=== PATIENT | male | born 1950 | race Caucasian/White ===

== ENCOUNTER 2017-12-22 12:24 | Observation (INO) | payer OTHER, SELFPAY ==
[~2017-12-22] VITALS: Ht 182.9 cm; Wt 87.2 kg
[~2017-12-22 12:24] MED LIST: ALBU90OI6 INH; ALBU90OI61 INH; AMLO10 PO; AMLOD; AMOCLA875 PO; BENAML10/5 PO; BENAZ; BUPR150ER PO; BUPR150T2 PO; BUSP5 PO; CALCAVITDA PO; CALCIUM PO; CARB150; CETI5 PO; CHLO25 PO; CHOL10002 PO; CIPDEXSU BOTHEARS; CLON.5 PO; CYAN500 PO; CYCL10 PO; DOCU100 PO; DULO30 PO; FERR325 PO; FLUO10 PO; FLUSAL2505 IH; FLUSAL2505 INH; FURO20; FURO20 PO; Flexeril 10 mg10 MG PO; GAVILAX17 GM PO; HYDCHL12.5 PO; HYDCHL25 PO; Iron Supplemen325 MG PO; LOTREL PO; Lamisil250 MG; MAGNESIUM PO; MELO7.5 PO; METO50 PO; MILK THISTLE140 MG PO; MULVIT PO; MULVITMIND PO; Micro-K10 MEQ; Milk Thistle500 MG PO; NAPR500ERA PO; NICO21TP TD; OMEP20ER PO; OMEP40CA12 PO; OXYACE5T PO; PHENY50CH PO; POTCHL10ER PO; PRED10 PO; Prilosec Otc20 MG PO; Prozac20 MG PO; Prozac40 MG; SODCHL1 PO; TIOT18 PO; TRAZ100 PO; TRAZ50 PO; VITAMIN B 12 PO; [UNRECOGNIZED DRUG - OTHER] PO
[2017-12-22] MEDS ORDERED: FLUT1DIS5 INH (12:39)
[2017-12-22] MEDS ORDERED: [UNRECOGNIZED DRUG - OTHER] PO (12:40)
[2017-12-22] MEDS ORDERED: PILO5 PO (12:40)
[2017-12-22 12:47] LABS: BASOPHILS ABSOLUTE AUTO 0.06 K/mm3 (0.00-0.23); BASOPHILS PERCENT AUTO 1 % (0-2); EOSINOPHILS ABSOLUTE AUTO 0.22 K/mm3 (0.00-0.68); EOSINOPHILS PERCENT AUTO 4 % (0-6); Hematocrit 37.7 % (37.0-53.0); Hemoglobin 13.1 g/dL (13.5-17.5); IMMATURE GRAN ABSOLUTE AUTO 0.02 K/mm3 (0.00-0.10); IMMATURE GRAN PERCENT AUTO 0 % (0-1); LYMPHOCYTES ABSOLUTE AUTO 0.78 K/mm3 (0.84-5.20); LYMPHOCYTES PERCENT AUTO 15 % (21-46); MONOCYTES ABSOLUTE AUTO 0.79 K/mm3 (0.16-1.47); MONOCYTES PERCENT AUTO 15 % (4-13); Mean Corpuscular HGB Conc 34.7 g/dL (31.5-36.5); Mean Corpuscular Volume 92 fL (80-100); Mean Platelet Volume 9.1 fL (9.1-12.4); NEUTROPHILS PERCENT AUTO 65 % (41-73); Platelet Count 202 K/mm3 (150-400); RDW Coefficient Variation 13.4 % (11.7-14.2); RDW Standard Deviation 45.8 fL (35.1-46.3); Red Blood Cell Count 4.09 M/mm3 (4.30-5.90); White Blood Cell Count 5.37 K/mm3 (4.00-11.30)
[2017-12-22 13:02] LABS: Source, Urine Clean Catch
[2017-12-22 13:09] LABS: Troponin I <0.015 ng/mL (0.000-0.040)
[2017-12-22 13:16] LABS: Bilirubin, Urine Neg (Neg); Blood, Urine Neg (Neg); Glucose Qualitative, Urine Neg (Neg); Ketones, Urine Neg (Neg); Leukocyte Esterase, Urine Neg (Neg); Nitrite, Urine Neg (Neg); Protein, Urine Neg (Neg); Specific Gravity, Urine 1.005 (1.003-1.022); Urobilinogen, Urine NORM (Normal)
[2017-12-22 13:19] LABS: Alanine Aminotransfer (ALT/SGP 70 U/L (12-78); Albumin, Blood 4.1 g/dL (3.4-5.0); Albumin/Globulin Ratio 1.1 (0.8-1.8); Alk Phos 76 U/L (50-136); Anion Gap 11 mmol/L (6-16); Aspartate Aminotrans (AST/SGOT 77 U/L (12-37); Bilirubin, Total 0.5 mg/dL (0.1-1.0); Blood Urea Nitrogen 4 mg/dL (8-24); Bun/Creatinine Ratio 6.8 (12.0-20.0); CO2, Blood 25 mmol/L (21-32); Calcium, Blood 9.4 mg/dL (8.5-10.1); Chloride, Blood 83 mmol/L (98-108); Creatinine, Blood 0.59 mg/dL (0.60-1.20); Globulin, Blood 3.9 g/dL (2.2-4.0); Glomerular Filtration Rate >60 (60-); Glucose, Blood 102 mg/dL (70-99); Potassium, Blood 4.1 mmol/L (3.5-5.5); Sodium, Blood 119 mmol/L (136-145)
[2017-12-22 13:27] LABS: Appearance, Urine Clear (Clear); Color, Urine Pale Yellow (P-Yellow)
[2017-12-22 13:39] LABS: Ethanol (Alcohol), Blood, Med 43 mg/dL; Magnesium, Blood 1.7 mg/dL (1.6-2.4)
[2017-12-23 09:06] LABS: Anion Gap 8 mmol/L (6-16); Blood Urea Nitrogen 8 mg/dL (8-24); CO2, Blood 29 mmol/L (21-32); Calcium, Blood 8.5 mg/dL (8.5-10.1); Chloride, Blood 90 mmol/L (98-108); Creatinine, Blood 0.67 mg/dL (0.60-1.20); Glomerular Filtration Rate >60 (60-); Glucose, Blood 93 mg/dL (70-99); Potassium, Blood 3.7 mmol/L (3.5-5.5); Sodium, Blood 127 mmol/L (136-145)
[2017-12-23] MEDS ORDERED: Amlodipine-Ben1 EACH PO (14:09)
[2017-12-23] MEDS ORDERED: AZIT500 PO (14:10)
[2017-12-23] MEDS ORDERED: ONE DAILY ESS400 MCG PO (14:12)
[2017-12-23] MEDS ORDERED: TIOT18 INH (14:14)
[2017-12-23] MEDS ORDERED: PRED20 PO (14:14)
[2018-05-21] MEDS ORDERED: BUSP5 PO (01:00)
[2018-05-22] MEDS ORDERED: AMLO5 PO (13:23)
[2018-05-22] MEDS ORDERED: BENA20 PO (13:23)
[2018-10-06] MEDS ORDERED: SODCHL1 PO (17:48)
[2018-10-06] MEDS ORDERED: COMBIVENT RESPIM4 GM INH (17:49)
[2018-10-06] MEDS ORDERED: CYCL10 PO (17:50)
[2018-10-06] MEDS ORDERED: TRAZ100 PO (17:51)
[2018-10-09] MEDS ORDERED: ACET325 PO (14:51)
[2018-10-09] MEDS ORDERED: FURO20 PO (14:52)
[2018-10-09] MEDS ORDERED: ROBITUSSIN COU237 ML PO (14:52)
[2018-10-09] MEDS ORDERED: NICO21TP TOP (14:53)
[2018-10-09] MEDS ORDERED: LEVO750 PO (14:53)
[2018-10-09] MEDS ORDERED: (None)20 M1 PO (14:53)
[2018-10-09] MEDS ORDERED: ONDA4ODT MM (14:54)
== END 2017-12-23 14:55 | disposition home or self-care (01) ==
LOC: ER 12:24 → MEDS 12:25 → ENPENDDIS 12-23 09:25 → MEDS 12-23 14:55
PROVIDERS: Emergency Medicine; Internal Medicine
DX: R07.9 Chest pain, unspecified (principal); E87.1 Hypo-osmolality and hyponatremia; I16.0 Hypertensive urgency; I10 Essential (primary) hypertension; J44.9 Chronic obstructive pulmonary disease, unspecified; F32.9 Major depressive disorder, single episode, unspecified; F41.9 Anxiety disorder, unspecified; M62.82 Rhabdomyolysis; E78.5 Hyperlipidemia, unspecified; F10.20 Alcohol dependence, uncomplicated; C14.0 Malignant neoplasm of pharynx, unspecified; Z79.52 Long term (current) use of systemic steroids; Z79.899 Other long term (current) drug therapy; Z79.01 Long term (current) use of anticoagulants; Z87.891 Personal history of nicotine dependence; Z90.89 Acquired absence of other organs; Z98.890 Other specified postprocedural states; Z79.2 Long term (current) use of antibiotics; Y90.2 Blood alcohol level of 40-59 mg/100 ml
CPT/HCPCS: 36415; 71046; 80048; 80053; 81003; 83735; 83880; 84484; 85025; 93005; 93010; 94640; 94760; 96361; 96365; 96372; 96375; 99285; G0378; G0480; J0360; J1650; J1940; J2930; J3411; J3475; J7030; J7042

== ENCOUNTER 2018-02-25 11:10 | Emergency (ER) | payer OTHER ==
[~2018-02-25] VITALS: Ht 182.9 cm; Wt 88.5 kg
[~2018-02-25 11:10] MED LIST changes: +AZIT500 PO; +Amlodipine-Ben1 EACH PO; +FLUT1DIS5 INH; +METO25 PO; -METO50 PO; +ONE DAILY ESS400 MCG PO; +PILO5 PO; +PRED20 PO; +TIOT18 INH
[2018-02-25] MEDS ORDERED: ALBU90OI61 INH (12:34)
== END 2018-02-25 12:45 | disposition home or self-care (01) ==
LOC: ER 11:10
DX: Z76.0 Encounter for issue of repeat prescription (principal); J44.9 Chronic obstructive pulmonary disease, unspecified
CPT/HCPCS: 99281